=== PATIENT | male | born 1980 | race Two or more races ===

== ENCOUNTER 2022-02-24 15:15 | Emergency (ER) | payer OTHER ==
[2022-02-24] MEDS ORDERED: Ibuprofen 600 MG Tab PO ONE (16:16)
[2022-02-24] MEDS ORDERED: traMADol 50 MG Tab PO ONE (16:16)
[2022-02-24 18:11] VITALS: BP 134/74; PULSE 74
== END 2022-02-24 18:11 | disposition home or self-care (01) ==
LOC: MW.ED 15:15
DX: S30.810A Abrasion of lower back and pelvis, initial encounter (principal); S20.419A Abrasion of unspecified back wall of thorax, initial encounter; S09.90XA Unspecified injury of head, initial encounter; I10 Essential (primary) hypertension; M54.2 Cervicalgia; Z88.0 Allergy status to penicillin; W17.89XA Other fall from one level to another, initial encounter
CPT/HCPCS: 70450; 72125; 73610; 99284; A9270

== ENCOUNTER 2023-04-08 10:25 | Emergency (ER) | payer SELFPAY ==
[2023-04-08] MEDS ORDERED: Sodium Chloride 0.9% 10 ML Syringe FLUSH PRN (10:28)
[2023-04-08] MEDS ORDERED: Sodium Chloride 0.9% 2.5 ML Syringe FLUSH PRN (10:28)
[2023-04-08] MEDS ORDERED: Aspirin 81 MG Tab.Chew PO ONE (10:28)
[2023-04-08 10:45] LABS: BASOPHILS PERCENT AUTO 0.2 % (0.0-1.5); EOSINOPHILS ABSOLUTE AUTO 0.3 K/uL (0.0-0.7); EOSINOPHILS PERCENT AUTO 3.4 % (0.0-7.0); HEMATOCRIT 47.1 % (38.0-50.0); HEMOGLOBIN 16.2 g/dL (13.0-17.0); LYMPHOCYTES ABSOLUTE AUTO 2.5 K/uL (0.6-2.4); MEAN CORPUSCULAR HEMOGLOBIN 30.8 pg (27.0-32.0); MEAN CORPUSCULAR HGB CONC 34.4 g/dL (31.0-37.0); MEAN CORPUSCULAR VOLUME 89.5 fL (80.0-98.0); MONOCYTES ABSOLUTE AUTO 0.9 K/uL (0.0-0.8); MONOCYTES PERCENT AUTO 10.6 % (0.0-15.0); NEUTROPHILS ABSOLUTE AUTO 4.6 K/uL (1.4-5.7); NEUTROPHILS PERCENT AUTO 55.8 % (48.0-80.0); NRBC ABSOLUTE 0 K/uL; NRBC PERCENT 0.2 /100WBC; PLATELET COUNT,PLT 211 K/uL (150-400); RED BLOOD CELL COUNT 5.26 M/uL (4.50-5.90); WHITE BLOOD CELL COUNT,WBC 8.31 K/uL (4.0-11.0)
[2023-04-08] MEDS ORDERED: Lisinopril 10 MG Tab PO ONE (10:51)
[2023-04-08 11:13] LABS: A/G RATIO 0.8 (0.9-1.6); ALBUMIN 3.1 g/dL (3.4-5.0); BILIRUBIN TOTAL 0.2 mg/dL (0.2-1.0); CALCIUM 8.5 mg/dL (8.5-10.1); CARBON DIOXIDE,CO2 24.4 mmol/L (21.0-32.0); CREATININE 0.8 mg/dL (0.8-1.3); EST CRCL DRUG DOSING (CG) 128.11 mL/min
[2023-04-08 12:14] VITALS: BP 160/106; PULSE 74
== END 2023-04-08 12:43 | disposition home or self-care (01) ==
LOC: MW.ED 10:25
DX: R07.89 Other chest pain (principal); I10 Essential (primary) hypertension; F15.10 Other stimulant abuse, uncomplicated; Z91.148 Patient's other noncompliance with medication regimen for other reason; Z79.899 Other long term (current) drug therapy; Z88.0 Allergy status to penicillin; Z87.891 Personal history of nicotine dependence
CPT/HCPCS: 36415; 71045; 80053; 84484; 85025; 93005; 99285; A9270; J3490; 93010; 99283

== ENCOUNTER 2023-12-13 14:11 | Emergency (ER) | payer SELFPAY ==
[2023-12-13] MEDS: Sulfamethoxazole/Trimethoprim 800-160 MG Tab PO ONE (15:01)
[2023-12-13] MEDS: Ibuprofen 600 MG Tab PO ONE (15:01)
[2023-12-13] MEDS: Lisinopril 10 MG Tab PO ONE (15:02)
[2023-12-13 16:11] VITALS: BP 170/107; PULSE 85
== END 2023-12-13 15:40 | disposition home or self-care (01) ==
LOC: MW.ED 14:11
DX: I10 Essential (primary) hypertension (principal); L73.9 Follicular disorder, unspecified; Z75.8 Other problems related to medical facilities and other health care; Z88.0 Allergy status to penicillin; Z79.899 Other long term (current) drug therapy
CPT/HCPCS: 99283; A9270